=== PATIENT | female | born 1980 | race Caucasian/White ===

== ENCOUNTER 2017-01-24 13:55 | Emergency (ER) | payer OTHER ==
[2017-01-24] MEDS ORDERED: Sodium Chloride 0.9% 1,000 ML IV ONE ×2 (14:48→17:15)
--- NOTE | 2017-01-24 14:52 | EDM.PDOC ---
ED HPI GENERAL MEDICAL PROBLEM - General Chief Complaint: Neuro Symptoms/Deficits Stated Complaint: DIZZY/CHEST TIGHTNESS Time Seen by Provider: 01/24/17 14:40 Source of Information: Reports: Patient History Limitations: Reports: No Limitations - History of Present Illness INITIAL COMMENTS - FREE TEXT/NARRATIVE: HISTORY AND PHYSICAL: History of present illness: Patient is a 36-year-old female who presents to the emergency room today with complaints of lightheadedness, palpitations, and feeling "off" 2 days. Reports that she was driving and felt like she could hear her kids talking but was not comprehending what they were saying.He should does have a history of anxiety as she states that she felt as she had these symptoms her anxiety was increased. patient denies any nausea, vomiting, diarrhea, headache, chest pain or shortness of breath. No visual changes. No recent trauma or injury. Patient has no previous cardiac problems and has never had a Holter EKG done in the past. Report she is overall healthy and only takes Sertraline for depression/anxiety control. Last menstrual period was approximately 3 days ago. Patient reports that this was normal and did not have any heavy bleeding at this time. Review of systems: As per history of present illness and below otherwise all systems reviewed and negative. Past medical history: As per history of present illness and as reviewed below otherwise noncontributory. Surgical history: As per history of present illness and as reviewed below otherwise noncontributory. Social history: No reported history of drug or alcohol abuse. Family history: As per history of present illness and as reviewed below otherwise noncontributory. Physical exam: Gen.: Well-developed and well-nourished 36-year-old female. Able to speak in full sentences without shortness of breath. Alert and oriented. HEENT: Atraumatic, normocephalic, pupils reactive, negative for conjunctival pallor or scleral icterus, mucous membranes moist, throat clear, neck supple, nontender, trachea midline. Lungs: Clear to auscultation, breath sounds equal bilaterally, chest nontender. Heart: S1S2, regular rate and rhythm Abdomen: Soft, nondistended, nontender. Negative for masses or hepatosplenomegaly. Negative for costovertebral tenderness. Pelvis: Stable nontender. Genitourinary: Deferred. Rectal: Deferred. Extremities: Atraumatic, negative for cords or calf pain. Neurovascular unremarkable. Neuro: Awake, alert, oriented. Cranial nerves II through XII unremarkable. Cerebellum unremarkable. Motor and sensory unremarkable throughout. Exam nonfocal. 1620- patient finished receiving her liter of fluids. Lab reports are back at this time and reviewed with the patient. At this time I am unable to find a source for her headedness or palpitations.Discussed the option of doing a head CT at this time, patient would like that.Patient still denies any symptoms of near syncope, vertigo - did discuss the option of taking some meclizine. Patient would like to try that at this time. Will continue to monitor. 1800- reviewed the head CT with the patient. As we continued to discuss her discharge, patient stated that she felt most of her symptoms were related to her anxiety. She expressed that she would like to try some Ativan to see if this helps. mother is at the bedside and will drive patient home.Patient received 0.5 mg of Ativan IV, reported that this did help "somewhat with her symptoms". Encourage patient to follow-up with her primary care provider for further evaluation and management of this. Diagnostics: CBC, CMP, EKG, orthostatic vital signs, urinalysis,urine , CT head Therapeutics: IV fluids, meclizine Impression: palpitations, anxiety Plan: 1. Discuss with your primary care provider r symptoms as he may need further follow-up. You may take Ativan 0.5mg up to TID as needed for anxiety. This medication can cause drowsiness, do not take while driving or needing to be functioning. 2. Ensure you are staying hydrated by drinking plenty of fluids. Eating a well- balanced diet. 3. follow-up with your primary care provider in the next 1-2 days. Return to the ED as needed as discussed Definitive disposition and diagnosis as appropriate pending reevaluation and review of above. Duration: Day(s): Location: Reports: Chest - Related Data Allergies Allergy/AdvReac Type Severity Reaction Status Date / Time No Known Allergies Allergy Verified 01/24/17 14:02 Home Meds: Home Meds Sertraline [Zoloft] 60 mg PO DAILY 08/13/14 [History] Past Medical History [employer] History: Reports: Psychiatric History: Reports: Depression Social & Family History - Family History Family Medical History: Noncontributory - Tobacco Use Smoking Status *Q: Never Smoker Second Hand Smoke Exposure: No - Alcohol Use Days Per Week of Alcohol Use: 0 - Recreational Drug Use Recreational Drug Use: No ED ROS GENERAL - Review of Systems Review Of Systems: ROS reveals no pertinent complaints other than HPI. ED EXAM, NEURO - Physical Exam Exam: See Below (see dictation) Course - Vital Signs Last Recorded V/S: Last Vital Signs Temp 37.1 C 01/24/17 14:02 Pulse 54 L 01/24/17 18:12 Resp 18 01/24/17 18:12 BP 99/54 L 01/24/17 18:12 Pulse Ox 96 01/24/17 18:12 Orthostatic Blood Pressure [ 89/55 Standing] Orthostatic Blood Pressure [ 95/50 Sitting] - Orders/Labs/Meds Orders: Active Orders 24 hr Category Date Time Status EKG Documentation Completion [RC] STAT Care 01/24/17 14:48 Active Orthostatic Vital Signs [RC] ASDIRECTED Care 01/24/17 14:48 Active Head wo Cont [CT] Stat Exams 01/24/17 16:22 Taken Labs: Laboratory Tests 01/24/17 01/24/17 01/24/17 Range/Units 15:15 15:15 15:50 WBC 8.17 (4.0-11.0) K/uL RBC 4.95 (4.30-5.90) M/uL Hgb 14.6 (12.0-16.0) g/dL Hct 42.9 (36.0-46.0) % MCV 86.7 (80.0-98.0) fL MCH 29.5 (27.0-32.0) pg MCHC 34.0 (31.0-37.0) g/dL RDW Std Deviation 42.3 (28.0-62.0) fl RDW Coeff of Zayra 13 (11.0-15.0) % Plt Count 231 (150-400) K/uL MPV 9.90 (7.40-12.00) fL Neut % (Auto) 79.1 (48.0-80.0) % Lymph % (Auto) 15.2 L (16.0-40.0) % [place] % (Auto) 4.0 (0.0-15.0) % Eos % (Auto) 1.1 (0.0-7.0) % Baso % (Auto) 0.6 (0.0-1.5) % Neut # (Auto) 6.5 H (1.4-5.7) K/uL Lymph # (Auto) 1.2 (0.6-2.4) K/uL Han[place] # (Auto) 0.3 (0.0-0.8) K/uL Eos # (Auto) 0.1 (0.0-0.7) K/uL Baso # (Auto) 0.1 (0.0-0.1) K/uL Nucleated RBC % 0.0 /100WBC Nucleated RBCs # 0 K/uL Sodium 138 (136-146) mmol/L Potassium 4.4 (3.5-5.1) mmol/L Chloride 107 (98-110) mmol/L Carbon Dioxide 23 (21-31) mmol/L BUN 14 (6.0-23.0) mg/dL Creatinine 0.8 (0.6-1.5) mg/dL Est Cr Clr Drug Dosing 74.06 mL/min Estimated GFR (MDRD) > 60.0 ml/min Glucose 98 (60-110) mg/dL Calcium 9.1 (8.8-10.8) mg/dL Total Bilirubin 0.2 (0.1-1.5) mg/dL AST 21 (5-40) IU/L ALT 12 (8-54) IU/L Alkaline Phosphatase 86 (40-150) Total Protein 7.3 (6.0-8.0) g/dL Albumin 4.1 (3.5-5.0) g/dL Globulin 3.2 (2.0-3.5) g/dL Albumin/Globulin Ratio 1.3 (1.3-2.8) Urine Color Urine Appearance Urine pH (5.0-8.0) Ur Specific Hamilton (1.001-1.035) Urine Protein (NEGATIVE) mg/dL Urine Glucose (UA) (NEGATIVE) mg/dL Urine Ketones (NEGATIVE) mg/dL Urine Occult Blood (NEGATIVE) Urine Nitrite (NEGATIVE) Urine Bilirubin (NEGATIVE) Urine Urobilinogen (<2.0) EU/dL Ur Leukocyte Esterase (NEGATIVE) Urine RBC (0-2/HPF) Urine WBC (0-5/HPF) Ur Epithelial Cells (NONE-FEW) Urine Bacteria (NEGATIVE) Urine HCG, Qual NEGATIVE (NEGATIVE) 01/24/17 Range/Units 15:50 WBC (4.0-11.0) K/uL RBC (4.30-5.90) M/uL Hgb (12.0-16.0) g/dL Hct (36.0-46.0) % MCV (80.0-98.0) fL MCH (27.0-32.0) pg MCHC (31.0-37.0) g/dL RDW Std Deviation (28.0-62.0) fl RDW Coeff of Zayra (11.0-15.0) % Plt Count (150-400) K/uL MPV (7.40-12.00) fL Neut % (Auto) (48.0-80.0) % Lymph % (Auto) (16.0-40.0) % [place] % (Auto) (0.0-15.0) % Eos % (Auto) (0.0-7.0) % Baso % (Auto) (0.0-1.5) % Neut # (Auto) (1.4-5.7) K/uL Lymph # (Auto) (0.6-2.4) K/uL [place] # (Auto) (0.0-0.8) K/uL Eos # (Auto) (0.0-0.7) K/uL Baso # (Auto) (0.0-0.1) K/uL Nucleated RBC % /100WBC Nucleated RBCs # K/uL Sodium (136-146) mmol/L Potassium (3.5-5.1) mmol/L Chloride (98-110) mmol/L Carbon Dioxide (21-31) mmol/L BUN (6.0-23.0) mg/dL Creatinine (0.6-1.5) mg/dL Est Cr Clr Drug Dosing mL/min Estimated GFR (MDRD) ml/min Glucose (60-110) mg/dL Calcium (8.8-10.8) mg/dL Total Bilirubin (0.1-1.5) mg/dL AST (5-40) IU/L ALT (8-54) IU/L Alkaline Phosphatase (40-150) Total Protein (6.0-8.0) g/dL Albumin (3.5-5.0) g/dL Globulin (2.0-3.5) g/dL Albumin/Globulin Ratio (1.3-2.8) Urine Color YELLOW Urine Appearance CLEAR Urine pH 7.0 (5.0-8.0) Ur Specific Hamilton <= 1.005 (1.001-1.035) Urine Protein NEGATIVE (NEGATIVE) mg/dL Urine Glucose (UA) NEGATIVE (NEGATIVE) mg/dL Urine Ketones NEGATIVE (NEGATIVE) mg/dL Urine Occult Blood NEGATIVE (NEGATIVE) Urine Nitrite NEGATIVE (NEGATIVE) Urine Bilirubin NEGATIVE (NEGATIVE) Urine Urobilinogen 0.2 (<2.0) EU/dL Ur Leukocyte Esterase NEGATIVE (NEGATIVE) Urine RBC 0-1 (0-2/HPF) Urine WBC 0-1 (0-5/HPF) Ur Epithelial Cells FEW (NONE-FEW) Urine Bacteria RARE (NEGATIVE) Urine HCG, Qual (NEGATIVE) Meds: Medications Discontinued Medications Generic Name Dose Route Start Last Admin Trade Name Freq PRN Reason Stop Dose Admin Sodium Chloride 1,000 mls @ 999 mls/hr 01/24/17 14:48 01/24/17 17:11 Normal Saline IV 01/24/17 15:48 999 mls/hr STAT ONE Administration Sodium Chloride 1,000 mls @ 999 mls/hr 01/24/17 17:15 01/24/17 17:54 Normal Saline IV 01/24/17 18:15 999 mls/hr STAT ONE Administration Lorazepam 0.5 mg 01/24/17 17:46 01/24/17 17:53 Ativan IVPUSH 01/24/17 17:47 0.5 mg ONETIME ONE Administration Meclizine HCl 25 mg 01/24/17 16:22 01/24/17 17:09 Antivert PO 01/24/17 16:23 25 mg ONETIME ONE Administration Departure - Departure Time of Disposition: 18:20 Disposition: Home, Self-Care 01 Condition: Good Clinical Impression: Palpitations, Anxiety - Discharge Information Instructions: Palpitations, [id number], Panic Attacks Referrals: Deepika Muller NP [Primary Care Provider] - Forms: ED Department Discharge Additional Instructions: My general discharge The following information is given to patients seen in the emergency department who are being discharged to home. This information is to outline your options for follow-up care. We provide all patients seen in our emergency department with a follow-up referral. The need for follow-up, as well as the timing and circumstances, are variable depending upon the specifics of your emergency department visit. If you don't have a primary care physician on staff, we will provide you with a referral. We always advise you to contact your personal physician following an emergency department visit to inform them of the circumstance of the visit and for follow-up with them and/or the need for any referrals to a consulting specialist. The emergency department will also refer you to a specialist when appropriate. This referral assures that you have the opportunity for follow-up care with a specialist. All of these measure are taken in an effort to provide you with optimal care, which includes your follow-up. Under all circumstances we always encourage you to contact your private physician who remains a resource for coordinating your care. When calling for follow-up care, please make the office aware that this follow-up is from your recent emergency room visit. If for any reason you are refused follow-up, please contact the [facility] Emergency Department at and asked to speak to the emergency department charge nurse. [address] [address] 1. Discuss with your primary care provider r symptoms as he may need further follow-up. You may take Ativan 0.5mg up to TID as needed for anxiety. This medication can cause drowsiness, do not take while driving or needing to be functioning. 2. Ensure you are staying hydrated by drinking plenty of fluids. Eating a well- balanced diet. 3. follow-up with your primary care provider in the next 1-2 days. Return to the ED as needed as discussed - My Orders Last 24 Hours: My Active Orders 01/24/17 14:48 EKG Documentation Completion [RC] STAT Orthostatic Vital Signs [RC] ASDIRECTED 01/24/17 16:22 Head wo Cont [CT] Stat - Assessment/Plan Last 24 Hours: My Active Orders 01/24/17 14:48 EKG Documentation Completion [RC] STAT Orthostatic Vital Signs [RC] ASDIRECTED 01/24/17 16:22 Head wo Cont [CT] Stat
[2017-01-24 15:46] LABS: CHLORIDE,CL 107 mmol/L (98-110); SODIUM,NA 138 mmol/L (136-146)
[2017-01-24] MEDS ORDERED: Meclizine 25 MG Tab PO ONE (16:22)
[2017-01-24] MEDS ORDERED: LORazepam 2 MG/ML MDV IVPUSH ONE (17:46)
[2017-01-24 18:13] VITALS: BP 99/54
--- NOTE | 2017-01-25 10:21 | CT ---
EXAM DATE: 01/24/17 PATIENT'S AGE: 36 Patient: RY CHILD Facility: [place], [place] Site Site : [id number] Study: CT Head [id number]/[id number] 5:02:44 PM Ordering Physician: DAVE Final Report: INDICATION: Abnormal sensation TECHNIQUE: CT head without contrast. COMPARISON: None available FINDINGS: The ventricles and sulci demonstrate normal configuration and size. There is no mass effect or midline shift. There is approximately 2 millimeter right tonsillar ectopia. There is no loss of cruz-white differentiation. There is no evidence of a gross acute intracranial hemorrhage. No acute calvarial fracture is seen. There is a small mucosal retention cyst or polyp in the right maxillary sinus. The mastoid air cells are clear. The visualized orbits are within normal limits. IMPRESSION: No evidence of an acute intracranial hemorrhage, mass effect or loss of cruz- white differentiation. Dictated by Ayden Herrera MD @ 01/24/2017 5:31:49 PM Dictated by: Ayden Herrera MD @ 01/24/2017 17:33:03 (Electronic Signature) Report Signed by Proxy. SHALYA
== END 2017-01-24 18:41 | disposition home or self-care (01) ==
LOC: MW.ED 13:55
DX: F41.9 Anxiety disorder, unspecified (principal); F32.9 Major depressive disorder, single episode, unspecified; Z79.899 Other long term (current) drug therapy
CPT/HCPCS: 36415; 70450; 80053; 81001; 81025; 85025; 93005; 96361; 96374; 99285; A9270; J2060; J7040; 99284

== ENCOUNTER 2024-02-18 17:10 | Emergency (ER) | payer SELFPAY ==
[2024-02-18 17:31] VITALS: BP 111/61
[2024-02-18] MEDS: Ibuprofen 600 MG Tab PO ONE (17:48)
[2024-02-18 19:08] VITALS: PULSE 99
== END 2024-02-18 19:08 | disposition home or self-care (01) ==
LOC: MW.ED 17:10
DX: S63.501A Unspecified sprain of right wrist, initial encounter (principal); Z75.8 Other problems related to medical facilities and other health care; W01.0XXA Fall on same level from slipping, tripping and stumbling without subsequent striking against object, initial encounter
CPT/HCPCS: 73110; 99283; A9270

== ENCOUNTER 2024-07-19 11:17 | Emergency (ER) | payer SELFPAY ==
[2024-07-19 13:07] LABS: BASOPHILS ABSOLUTE AUTO 0.05 K/uL (0.00-0.20); BASOPHILS PERCENT AUTO 0.7 % (0.0-1.0); EOSINOPHILS ABSOLUTE AUTO 0.03 K/uL (0.00-0.45); EOSINOPHILS PERCENT AUTO 0.4 % (0.0-6.0); HEMATOCRIT 41.4 % (37.0-47.0); HEMOGLOBIN 13.9 g/dL (12.0-16.0); IMMATURE GRAN ABSOLUTE AUTO 0.01 K/uL (0.00-0.05); IMMATURE GRAN PERCENT AUTO 0.1 % (0.0-0.4); LYMPHOCYTES PERCENT AUTO 18.1 % (24.0-44.0); MEAN CORPUSCULAR HGB CONC 33.6 g/dL (32.0-36.0); MEAN CORPUSCULAR VOLUME 86.3 fL (83.0-99.0); MEAN PLATELET VOLUME 9.5 fL (9.4-12.3); MONOCYTES ABSOLUTE AUTO 0.43 K/uL (0.00-0.80); NEUTROPHILS ABSOLUTE AUTO 5.36 K/uL (1.80-7.70); NEUTROPHILS PERCENT AUTO 74.7 % (41.0-71.0); PLATELET COUNT,PLT 256 K/uL (150-400); WHITE BLOOD CELL COUNT,WBC 7.18 K/uL (3.9-11.3)
[2024-07-19 13:15] LABS: A/G RATIO 1.2 (0.9-1.6); ALBUMIN 4.1 g/dL (3.4-5.0); BILIRUBIN TOTAL 0.3 mg/dL (0.2-1.0); CALCIUM 8.9 mg/dL (8.5-10.1); CARBON DIOXIDE,CO2 26.9 mmol/L (21.0-32.0); CREATININE 0.8 mg/dL (0.6-1.0); EST CRCL DRUG DOSING (CG) 68.42 mL/min; MAGNESIUM 2.1 mg/dL (1.8-2.4); POTASSIUM,K 4.1 mmol/L (3.5-5.1); PROTEIN TOTAL,TP 7.4 g/dL (6.4-8.2)
[2024-07-19 13:45] VITALS: BP 96/63; PULSE 85
== END 2024-07-19 13:52 | disposition home or self-care (01) ==
LOC: MW.ED 11:17
DX: R42 Dizziness and giddiness (principal); R07.9 Chest pain, unspecified; Z79.899 Other long term (current) drug therapy; Z75.3 Unavailability and inaccessibility of health-care facilities
CPT/HCPCS: 36415; 71046; 71046-26; 80053; 83690; 83735; 84484; 84703; 85025; 93005; 99285